=== PATIENT | female | born 2000 | race Caucasian/White ===

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

== ENCOUNTER 2020-01-19 09:32 | Emergency (ER) | payer BC, OTHER ==
--- NOTE | 2020-01-19 10:15 | EDM.PDOC ---
ED HPI GENERAL MEDICAL PROBLEM - General Chief Complaint: Chest Pain Stated Complaint: HEART PROBLEMS SENT BY PAULO Time Seen by Provider: 01/19/20 10:00 Source of Information: Reports: Patient History Limitations: Reports: No Limitations - History of Present Illness INITIAL COMMENTS - FREE TEXT/NARRATIVE: 19-year-old female presents to the ED after being seen by Dr. Shira Reddy walk-in clinic this morning. She is been diagnosed with systemic lupus erythematosus 3 years ago. It is mainly affected her knees hands and her hips. She remains on prednisone 10 mg once daily with other immunosuppressants. She states that about a week to 10 days ago she started to get increased pain in her knees and hips indicating a flareup. Over the last 3 days she is also started to appreciate central chest pain which is worse by lying down. Better when sitting up. It is sharp and stabbing and she can feel every heartbeat. Her ECG done at the clinic is a sinus tachycardia at 121/min. The computer comments on ST segment elevation suggesting acute pericarditis. However on my inspection it reveals a diffuse early repolarization pattern. There are no variation of the P waves and overall the ST segment appears to be normal. Disease process is being treated with methotrexate once weekly, Plaquenil daily and prednisone 10 mg once daily. Shift estimates she has been on prednisone for 3 years. To get her off. Take Motrin for pain relief. Onset: Gradual Onset Date: 01/17/20 (Pain started about 3 days ago but is getting worse.) Duration: Day(s):, Getting Worse Location: Reports: Chest (Central pleuritic chest pain worse when she is lying flat. Associated sense of shortness of breath.) Quality: Reports: Sharp, Stabbing (Reticulocyte) Severity: Moderate (chest pain. She can feel every heartbeat.) Improves with: Reports: Other (Feels better sitting up versus lying down.) Worsens with: Reports: Other Context: Reports: Other (Has known systemic lupus erythematosus.). Denies: Activity, Exercise (Plan position), Lifting, Sick Contact, Trauma Associated Symptoms: Reports: Malaise, Shortness of Breath, Weakness, Other (Increased pain in her knees and hips.). Denies: Confusion, Chest Pain, Cough, cough w sputum, Diaphoresis, Fever/Chills, Headaches, Loss of Appetite, Nausea/Vomiting, Rash, Seizure, Syncope Treatments CHEMICAL CHECKER: Reports: NSAIDS Left Upper Anterior Chest Pain Score (Numeric/FACES): 8 - Related Data Allergies Allergy/AdvReac Type Severity Reaction Status Date / Time methimazole Allergy Other Verified 01/19/20 09:45 Home Meds: Home Meds Hydroxychloroquine [Plaquenil] 200 mg PO DAILY 07/02/19 [History] Levothyroxine 200 mcg PO ACBREAKFAST 07/02/19 [History] predniSONE [Prednisone] 5 mg PO ASDIRECTED #60 tablet 07/02/19 [Rx] hydrOXYzine HCL [hydrOXYzine] 10 mg PO DAILY 07/23/19 [History] metHOTREXate sodium [Trexall] 40 mg PO WEEKLY 01/19/20 [History] oxyCODONE HCl/Acetaminophen [Percocet 5-325 mg Tablet] 1 - 2 each PO Q4H PRN #20 tablet 01/19/20 [Rx] predniSONE [Prednisone] 20 mg PO ASDIRECTED #50 tablet 01/19/20 [Rx] Past Medical History Musculoskeletal History: Reports: SLE (Nose 3 years ago. It is mainly affected her large joints like her knees and her hips low back and her hands.) Neurological History: Reports: Other (See Below) Endocrine/Metabolic History: Reports: Hypothyroidism Hematologic History: Reports: Other (See Below) Other Hematologic History: Lupus Social & Family History - Tobacco Use Smoking Status *Q: Never Smoker - Caffeine Use Caffeine Use: Reports: Energy Drinks - Recreational Drug Use Recreational Drug Use: No - Living Situation & Occupation Living situation: Reports: Single, with Significant Other Occupation: Employed ED ROS GENERAL - Review of Systems Review Of Systems: See Below Constitutional: Reports: Malaise, Weakness, Fatigue, Decreased Appetite, Other (Disrupted sleep pattern due to pain in her joints). Denies: Fever, Chills HEENT: Reports: No Symptoms Respiratory: Reports: No Symptoms Cardiovascular: Reports: Chest Pain (Chest pain which is pleuritic in nature and made worse by lying flat. She is better sitting up. She can feel every heartbeat which is often a sign of pericarditis.). Denies: Blood Pressure Problem, Claudication, Dyspnea on Exertion, Edema, Lightheadedness, Orthopnea, Palpitations Endocrine: Reports: Fatigue GI/Abdominal: Reports: Decreased Appetite : Reports: No Symptoms Musculoskeletal: Reports: Other (Currently a lot of pain in both knees and hips over the last 8 to 10 days and she is experiencing a flareup of her lupus. Her hands are also involved and wrists to a lesser extent. Ankles as well.) Skin: Reports: No Symptoms Neurological: Reports: No Symptoms Psychiatric: Reports: No Symptoms Hematologic/Lymphatic: Reports: No Symptoms ED EXAM, GENERAL - Physical Exam Exam: See Below Exam Limited By: No Limitations General Appearance: Alert, WD/WN, No Apparent Distress, Other (Temperature is 36.5 heart rate 102 and sinus respiratory to 20 with O2 sats of 100% on room air BP 123/87) Eye Exam: Bilateral Eye: Normal Inspection, PERRL Throat/Mouth: Normal Inspection, Normal Lips, Normal Teeth, Normal Oropharynx Head: Atraumatic, Normocephalic Neck: Normal Inspection, Supple, Non-Tender, Full Range of Motion. No: Lymphadenopathy (L), Lymphadenopathy (R) Respiratory/Chest: No Respiratory Distress, Lungs Clear, Normal Breath Sounds, No Accessory Muscle Use, Chest Non-Tender Cardiovascular: Normal Peripheral Pulses, No Edema, No Gallop, No Murmur, No Rub, Tachycardia (Sinus tachycardia), Other (No pericardial rub detected. Heart sounds are not muffled clinically. No JVD.) Peripheral Pulses: 0: Dorsalis Pedis (R), 3+: Carotid (L), Carotid (R), Posterior Tibial (L), Posterior Tibial (R), Dorsalis Pedis (L) GI/Abdominal: Normal Bowel Sounds, Soft, Non-Tender, No Organomegaly, No Abnormal Bruit, No Mass, Pelvis Stable Back Exam: Decreased Range of Motion, Vertebral Tenderness. No: CVA Tenderness (L), CVA Tenderness (R) Extremities: Other (She has evidence of inflammation of both knees with both joints being tender with mild effusions noted bilaterally. Joint line tenderness is bilateral. I did not assess her hips as she is states that they are very sore. Particular in the SI joint distribution. Has evidence of inflammation across the dorsal hands particularly the second third and fourth MCP joints bilaterally. She is right-hand dominant) Neurological: Alert, Oriented, CN II-XII Intact, Normal Cognition. No: Normal Gait (Antalgic gait) Psychiatric: Normal Affect, Normal Mood Skin Exam: Warm, Dry, Intact, Normal Color, No Rash Course - Vital Signs Last Recorded V/S: Last Vital Signs Temp 36.5 C 01/19/20 09:41 Pulse 102 H 01/19/20 09:41 Resp 20 01/19/20 09:41 BP 123/87 01/19/20 09:41 Pulse Ox 100 01/19/20 09:41 - Orders/Labs/Meds Orders: Active Orders 24 hr Category Date Time Status Chest w Cont [CT] Stat Exams 01/19/20 10:10 Taken Sodium Chloride 0.9% [Normal Saline] 45 ml Med 01/19/20 10:30 Active IV ASDIRECTED Sodium Chloride 0.9% [Saline Flush] Med 01/19/20 10:20 Active 10 ml FLUSH ONETIME PRN Medication Orders Sodium Chloride (Normal Saline) 45 mls @ 40 mls/hr IV ASDIRECTED FIORELLA Last Admin: 01/19/20 10:33 Dose: 40 mls/hr Documented by: JORDAN Sodium Chloride (Saline Flush) 10 ml FLUSH ONETIME PRN PRN Reason: Keep Vein Open Last Admin: 01/19/20 10:33 Dose: 10 ml Documented by: JORDAN Meds: Medications Generic Name Dose Route Start Last Admin Trade Name Freq PRN Reason Stop Dose Admin Sodium Chloride 45 mls @ 40 mls/hr 01/19/20 10:30 01/19/20 10:33 Normal Saline IV 40 mls/hr ASDIRECTED FIORELLA Administration Sodium Chloride 10 ml 01/19/20 10:20 01/19/20 10:33 Saline Flush FLUSH 10 ml ONETIME PRN Administration Keep Vein Open Discontinued Medications Generic Name Dose Route Start Last Admin Trade Name Freq PRN Reason Stop Dose Admin Hydromorphone HCl 1 mg 01/19/20 11:20 01/19/20 11:25 Dilaudid IVPUSH 01/19/20 11:21 1 mg ONETIME ONE Administration Iopamidol 100 ml 01/19/20 10:18 01/19/20 10:32 Isovue-300 (61%) IVPUSH 01/19/20 10:19 100 ml ONETIME ONE Administration Methylprednisolone Sodium Succinate 125 mg 01/19/20 11:20 01/19/20 11:25 Solu-Medrol IVPUSH 01/19/20 11:21 125 mg ONETIME ONE Administration - Radiology Interpretation Free Text/Narrative:: 18-year-old female with confirmed lupus erythematosus x3 years presents to the ED at the request of Dr. Silva whom attended her in the walk-in clinic at [facility] this morning. She is complaining of a flareup of her lupus over the last 7 to 10 days with particular increased pain in her hips and knees. Currently she has swelling of the dorsal hands as well. Her chief complaint is pleuritic chest pain and she can feel every heartbeat for the last 3 days and is progressively worsened. It is worse is when she is lying down versus sitting up. She is on prednisone 10 mg daily and has been for many months. She is supposedly trying to wean from this medication which she is been on for many years. She also is on Plaquenil and methotrexate. The dosages of these medicines have not been changed. Dr. Robby Street did an ECG on her which to me shows early repolarization pattern but could be interpreted as mild ST segment elevation in the precordial leads. There is some ST segment elevation in lead I and aVL but could represent acute pericarditis as well. She has a sinus tachycardia at 121/min. Was revealed a normal white count at 5.8 with 83.7% neutrophils hemoglobin slightly low at 11.7 with hematocrit of 36.4. MCV is normal at 89.9. Platelet count was 323,000. Chemistry showed a glucose of 92 and a BUN of 12 creatinine serum was 0.83. BUN/creatinine ratio is 14.5. Sodium 137 with a potassium of 4.1 chloride 103 with a bicarb of 22. Calcium was 9.3. Mated glomerular filtration rate was 89 with normal being greater than 90 in their lab. TSH was 0.34 normal CRP was markedly elevated at 176.5 troponin I is 0.030 patient is hemodynamically stable and has no JVD on my exam. Heart sounds do sound normal with no rubs. Her chest x-ray done at the clinic did suggest cardiomegaly in comparison to previous films. She is therefore here for CT of the chest primarily to establish how significant a pericardial effusion she appears to have. - Re-Assessments/Exams Free Text/Narrative Re-Assessment/Exam: 01/19/20 11:02 CT chest done with IV contrast. Lungs are clear of infiltrates and edema. There is a minor left basilar atelectasis. Pleural space is unremarkable with no pneumothorax or pleural effusions. Heart there is mild pericardial fluid. There also is in appearance which may represent minor pericardial thickening. No pericardial calcifications. Heart is mildly enlarged. There is is nonspecific there is no evidence of tamponade related to the small pericardial effusion. Pulmonary arteries are unremarkable. Thoracic aorta is unremarkable with no dissection or aneurysm. 01/19/20 11:18 I discussed the findings with the patient and her boyfriend. This time she has a minimal pericardial effusion and is asymptomatic. I am therefore going to give her a dose of Solu-Medrol 125 mg IV now. She will then start be started on higher dose of prednisone 20 mg twice daily for the next 7 days and then will start to wean her slowly by 10 mg a week to get back to 10 mg daily. She is steroid dependent at any rate taking 10 mg daily. She will use Aleve 2 tablets every 8 hours to also reduce inflammation of the pericardium. I suggested Pepcid 20 mg daily to protect the stomach. Is having a lot of pain in her joints at present. Given Dilaudid 0.5 mg in the ED. I will start her on Percocet tabs 5/325 primarily 1 or 2 tablets at bedtime to help sleep. Twelve tablets provided. 01/19/20 11:43 patient to follow-up with her primary care provider Chante France next Monday which is 8 days from today. She needs a repeat CRP and a serum potassium checked, and if she is still symptomatic in any fashion she should have an echocardiogram done to identify that the small pericardial effusion has re absorbed. Return to the ED if she has any shortness of breath or worsening of symptoms. Usually she should expect 80 to 90% improvement of her pain within 48 hours of starting high-dose steroids. We will start with 20 mg of prednisone twice daily for 10 days and then wean by 10 mg/week until she gets back down to 10 mg once daily in the morning. Departure - Departure Time of Disposition: 11:44 Disposition: Home, Self-Care 01 Reason for Transfer *Q: Other Condition: Fair Clinical Impression: Acute pericarditis associated with systemic lupus erythematosus (SLE), Pericardial effusion without cardiac tamponade Prescriptions: oxyCODONE HCl/Acetaminophen [Percocet 5-325 mg Tablet] 1 - 2 each PO Q4H PRN #20 tablet PRN Reason: pain relief. predniSONE [Prednisone] 20 mg PO ASDIRECTED #50 tablet Instructions: Systemic Lupus Erythematosus, Adult, Pericardial Effusion Referrals: Chante Garcia PA-C [Primary Care Provider] - Forms: ED Department Discharge Additional Instructions: Evaluation in the emergency room today at the request of seen you in the walk-in clinic at [facility] today. ECG showed changes suggestive of pericarditis and heart is enlarged on plain film x-ray. Clinically you have acute pericarditis related to your lupus flareup over the last 8 [address] of the chest was done with IV contrast today and confirms the heart is enlarged with a small pericardial effusion which means a small amount of fluid accumulating in the sac around your heart. This time it is not causing any significant distress to the heart. However pericarditis deserves treatment with nonsteroidal anti-inflammatories i.e. Aleve 2 tablets every 8 hours for the next 7 to 10 days. Prednisone 20 mg twice daily with breakfast and supper for 10 days and then start to wean by 10 mg/week. 20 mg to be taken in the morning 10 mg in the p.m. for the next week and then down to 20 mg once daily in the morn ing for another week until he get back down to 10 mg daily. Just picking up some Pepcid 20 mg once daily to protect her stomach lining from the effect of steroids and the nonsteroidals to prevent any gastritis or bleeding. You should expect improvement in terms of pain relief over the next 48 hours. If you develop shortness of breath or pain is not markedly relieved in 48 to 72 hours you need to be seen again. Otherwise follow-up with Chante France in 8 days time which would be next Monday. You will need a repeat CRP test which is a blood test and an echocardiogram arranged as an outpatient. Did send you home with a prescription for Percocet tabs 5/325 mg strength user ideally to be used at bedtime to help sleep. 1 or 2 tablets at bedtime as needed for pain relief. Sepsis Event Note (ED) - Evaluation Sepsis Screening Result: No Definite Risk - Focused Exam Vital Signs: Vital Signs Temp Pulse Resp BP Pulse Ox 01/19/20 09:41 36.5 C 102 H 20 123/87 100 - My Orders Last 24 Hours: My Active Orders 01/19/20 10:10 Chest w Cont [CT] Stat 01/19/20 10:20 Sodium Chloride 0.9% [Saline Flush] 10 ml FLUSH ONETIME PRN 01/19/20 10:30 Sodium Chloride 0.9% [Normal Saline] 45 ml IV ASDIRECTED - Assessment/Plan Last 24 Hours: My Active Orders 01/19/20 10:10 Chest w Cont [CT] Stat 01/19/20 10:20 Sodium Chloride 0.9% [Saline Flush] 10 ml FLUSH ONETIME PRN 01/19/20 10:30 Sodium Chloride 0.9% [Normal Saline] 45 ml IV ASDIRECTED
[2020-01-19] MEDS ORDERED: Iopamidol 612 MG/ML 100 ML Bottle IVPUSH ONE (10:18)
[2020-01-19] MEDS ORDERED: Sodium Chloride 0.9% 10 ML Syringe FLUSH PRN (10:20)
[2020-01-19] MEDS ORDERED: Sodium Chloride 0.9% 45 ML IV SCH (10:30)
[2020-01-19] MEDS ORDERED: HYDROmorphone 1 MG/ML Syringe IVPUSH ONE (11:20)
[2020-01-19] MEDS ORDERED: methylPREDNISolone Sodium Succinate 125 MG/2 ML SDV IVPUSH ONE (11:20)
--- NOTE | 2020-01-20 09:43 | CT ---
CT chest Technique: Multiple axial sections through the chest were obtained. Intravenous contrast was utilized. Findings: Aorta shows no aneurysm. Small pericardial effusion is noted. Small amount of pericardial fluid extends into the superior pericardial recess within the mediastinum. Normal enhancing great vessels are noted. No adenopathy is seen. Numerous lymph nodes are noted within the axillary regions most likely within normal limits. Heart size is slightly generous. Visualized upper abdominal structures show nothing acute. Mild atelectasis within the left lung base. No acute parenchymal change is seen within either lung. No pleural effusions are noted. Bone window settings were reviewed which shows no acute osseous finding. Impression: 1. Small pericardial effusion with fluid extending into the superior pericardial recess. 2. Heart size is slightly generous. 3. Mild left basilar atelectasis. Diagnostic code #3 This report was dictated in MDT I agree with preliminary report from [facility], finalized on 01/19/20, 11:58 AM Central Daylight Time
== END 2020-01-19 12:08 | disposition home or self-care (01) ==
LOC: JD.ED 09:32
DX: I30.9 Acute pericarditis, unspecified (principal); M32.9 Systemic lupus erythematosus, unspecified; E03.9 Hypothyroidism, unspecified; Z79.899 Other long term (current) drug therapy; Z88.8 Allergy status to other drugs, medicaments and biological substances
CPT/HCPCS: 71260; 96374; 96375; 99285; J1170; J2930; J7050; Q9967